=== PATIENT | female | born 1990 ===

== ENCOUNTER 2022-10-02 05:38 | Day surgery (SDC) | payer OTHER ==
[~2022-10-02] VITALS: Ht 180.3 cm; Wt 134.3 kg
[2022-10-02] MEDS ORDERED: LAMICTAL100 M1 (09:11)
[2022-10-02] MEDS ORDERED: EFFEXOR (09:12)
== END 2022-10-02 20:00 | disposition home or self-care (01) ==
LOC: CIR.AMB 05:38
PROVIDERS: ATTEND Obstetrics & Gynecology
DX: R10.2 Pelvic and perineal pain (principal); N70.91 Salpingitis, unspecified; N73.6 Female pelvic peritoneal adhesions (postinfective); Z30.432 Encounter for removal of intrauterine contraceptive device